=== PATIENT | female | born 1985 | race Two or more races ===

== ENCOUNTER 2023-12-05 16:28 | Emergency (ER) | payer BC ==
[~2023-12-05] VITALS: Ht 160 cm; Wt 59.4 kg
[2023-12-05] MEDS: KETOROLAC TROMETHAMINE INJ 30 MG/ML VIAL IM ONE (18:02)
[2023-12-05 20:44] VITALS: BP 108/59; TEMP 98; O2SAT 98
== END 2023-12-05 20:45 | disposition home or self-care (01) ==
LOC: ER 16:31
DX: R51.9 Headache, unspecified (principal); Z98.890 Other specified postprocedural states
CPT/HCPCS: 99285; 70450; 96372; J1885